=== PATIENT | female | born 1990 | race Caucasian/White ===

== ENCOUNTER 2021-02-09 20:38 | Emergency (ER) | payer MEDICAID ==
[~2021-02-09] VITALS: Ht 160 cm; Wt 63.5 kg
[2021-02-09 20:40] VITALS: BP_SYST 118
--- NOTE | 2021-02-09 20:45 | NUR ---
PT TO BED 8 FOR EVALUATION. REPORT GIVEN TO RACHEL CRAMER WHO WILL ASSUME CARE.
--- NOTE | 2021-02-09 20:45 | NUR ---
PT AAO AND AMBULATORY REPORTING SUDDEN ONSET OF WORSENING RIGHT SIDED PAIN AND SWELLING FOR THE PAST DAY. PT TOOK TYLENOL AT HOME AND REPORTS THAT PAIN IS STILL AN 8/10 ON PAIN SCALE. PT DENIES ANY TRAUMA OR INJURY.
--- NOTE | 2021-02-09 21:26 | NUR ---
DR. MCCULLOUGH AT BEDSIDE TO ASSESS.
[2021-02-09] MEDS ORDERED: MESA500C PO (21:29)
[2021-02-09] MEDS ORDERED: NAPR-1172 PO (21:29)
[2021-02-09] MEDS ORDERED: PENI250T2 PO (21:38)
--- NOTE | 2021-02-09 21:39 | NUR ---
Dr. Powell bedside for Pt DC
[2021-02-09 21:40] VITALS: BP_SYST 118
--- NOTE | 2021-02-09 21:40 | NUR ---
Patient given written and verbal discharge instructions and verbalizes understanding. ER MD discussed with patient the results and treatment provided. Patient in stable condition. ID arm band removed. Patient educated on pain management and to follow up with PMD. Pain Scale 0/10 Opportunity for questions provided and answered.
== END 2021-02-09 21:40 | disposition home or self-care (01) ==
LOC: SED 20:38
DX: K05.10 Chronic gingivitis, plaque induced (principal); Z79.899 Other long term (current) drug therapy
CPT/HCPCS: 99283